=== PATIENT | female | born 1935 | race Caucasian/White ===

== ENCOUNTER 2019-05-20 03:16 | Inpatient (IN) ==
[2019-05-20] MEDS ORDERED: Naloxone 0.4 MG/ML INJ IVP PRN (05:48)
[2019-05-20] MEDS ORDERED: Ondansetron 4 MG/2 ML VIAL IVP PRN (05:48)
[2019-05-20 06:25] LABS: Basophils % 0.4 %; Hematocrit 34.5 % (35.3-44.9); Hemoglobin 11.5 g/dL (11.5-15.4); Immature Granulocytes % 0.3 % (0-4); Lymphocytes # 1.6 K/mcL (0.6-4.6); Lymphocytes % 15.8 %; Mean Corpuscular HGB Conc 33.3 g/dL (31.6-35.5); Mean Corpuscular Hemoglobin 29.9 pg (28.0-33.3); Mean Corpuscular Volume 89.6 fL (83.0-100.0); Mean Platelet Volume 9.4 fL (9.4-12.4); Monocytes # 0.7 K/mcL (0.0-1.3); Monocytes % 6.8 %; Neutrophils # 7.5 K/mcL (1.6-8.9); Platelet Count 206 K/mcL (140-400); Red Blood Count 3.85 M/mcL (3.82-4.97); Red Cell Distribution Width 13.8 % (11.5-14.5); Segmented Neutrophils % 76.7 %; White Blood Count 9.8 K/mcL (4.3-11.1)
[2019-05-20 06:32] LABS: INR 1.2; Prothrombin Time 13.6 Seconds (9.4-12.1)
[2019-05-20 06:42] LABS: Alanine Aminotransferase 12 Units/L (7-52); Albumin 3.5 g/dL (3.5-5.7); Albumin/Globulin Ratio 1.4 (1.1-2.2); Alkaline Phosphatase 37 Units/L (34-104); Aspartate Amino Transferase 23 Units/L (13-39); BUN/Creatinine Ratio 19 (6-26); Bilirubin,Total 0.6 mg/dL (0.3-1.0); Blood Urea Nitrogen 22 mg/dL (8-23); Calcium 8.9 mg/dL (8.6-10.3); Carbon Dioxide 27 mEq/L (23-29); Chloride 107 mEq/L (98-107); Globulin 2.5 g/dL (2.4-3.5); Glucose 125 mg/dL (70-105); Magnesium 1.9 mg/dL (1.6-2.6); Osmolality,Calculated 293 (280-300); Potassium 4.2 mEq/L (3.5-5.1); Sodium 139 mEq/L (136-145); eGFR For African Americans 55 (> 60); eGFR For Non-African Americans 45 (> 60)
[2019-05-20] MEDS ORDERED: Potassium Chloride 40 MEQ, Lidocaine 1% 2 ML in 0.9 % Sodium Chloride 500 ML IVPB ONE (06:44)
[2019-05-20 06:48] LABS: Troponin I < 0.03 ng/mL (< 0.04)
[2019-05-20] MEDS ORDERED: cefTRIAXone 1,000 MG in Water for inj. (sterile) 10 ML IVP SCH (09:00)
[2019-05-20] MEDS: polyethylene glycoL 3350 17 GM POWD.PACK PO SCH (09:44)
[2019-05-20] MEDS: Lactobacillus 1 EACH CAP.SPRINK PO SCH ×2 (09:44→20:51)
[2019-05-20 10:44] LABS: Bilirubin,Urine Negative (Negative); Blood,Urine Small (Negative); Clarity,Urine Cloudy (Clear); Color,Urine Yellow (Yellow); Glucose,Urine (UA) Normal (Normal); Ketones,Urine Negative (Negative); Leukocyte Esterase,Urine Moderate (Negative); Nitrite,Urine Negative (Negative); Protein,Urine 100 mg/dL (Neg-Trace); Urobilinogen,Urine Normal (Normal)
[2019-05-20 10:49] LABS: Bacteria,Urine None Seen per hpf (None-Few); Hyaline Casts,Urine Few per lpf (None-Few); RBC,Urine 50-100 per hpf (0-3); Squamous Epithelial Cell,Urine Many per lpf (None-Few); WBC,Urine 30-50 per hpf (0-3)
[2019-05-20] MEDS: *HR* Heparin 5,000 UNIT/ML VIAL SQ SCH ×2 (14:52→20:51)
[2019-05-20] MEDS: Acetaminophen 325 MG TABLET PO PRN (20:50)
[2019-05-20] MEDS: Divalproex Sodium 125 MG CAPSULE PO SCH (20:50)
[2019-05-21] MEDS: *HR* Heparin 5,000 UNIT/ML VIAL SQ SCH ×3 (05:37→21:54)
[2019-05-21 08:39] LABS: Adenovirus Not Detected (Not Detect); Coronavirus 229E Not Detected (Not Detect); Coronavirus HKU1 Not Detected (Not Detect); Coronavirus NL63 Not Detected (Not Detect); Coronavirus OC43 Not Detected (Not Detect); Human Metapneumovirus Not Detected (Not Detect); Human Rhinovirus/Enterovirus Not Detected (Not Detect); Influenza A Subtype 2009 H1 Not Detected (Not Detect)
[2019-05-21 08:40] LABS: Bordetella Pertussis Not Detected (Not Detect); Chlamydophila pneumoniae Not Detected (Not Detect); Influenza B Not Detected (Not Detect); Mycoplasma pneumoniae Not Detected (Not Detect); Parainfluenza Virus 1 Not Detected (Not Detect); Parainfluenza Virus 2 Not Detected (Not Detect); Parainfluenza Virus 3 Not Detected (Not Detect); Parainfluenza Virus 4 Not Detected (Not Detect); Respiratory Syncytial Virus Not Detected (Not Detect)
[2019-05-21] MEDS: Divalproex Sodium 125 MG CAPSULE PO SCH ×2 (10:08→21:53)
[2019-05-21] MEDS: Aspirin Enteric Coated 81 MG Tablet PO SCH (10:08)
[2019-05-21] MEDS: Lactobacillus 1 EACH CAP.SPRINK PO SCH ×2 (10:08→21:53)
[2019-05-21] MEDS: polyethylene glycoL 3350 17 GM POWD.PACK PO SCH (10:08)
[2019-05-21] MEDS ORDERED: Ringers Solution, Lactated 1,000 ML IVC ONE (11:52)
[2019-05-21 12:33] LABS: Basophils # 0.1 K/mcL (0.0-0.2); Basophils % 1.1 %; Eosinophils # 0.1 K/mcL (0.0-0.6); Eosinophils % 1.7 %; Hematocrit 33.8 % (35.3-44.9); Hemoglobin 11.3 g/dL (11.5-15.4); Immature Granulocytes % 0.2 % (0-4); Lymphocytes # 1.6 K/mcL (0.6-4.6); Lymphocytes % 24.9 %; Mean Corpuscular HGB Conc 33.4 g/dL (31.6-35.5); Mean Corpuscular Hemoglobin 30.2 pg (28.0-33.3); Mean Corpuscular Volume 90.4 fL (83.0-100.0); Mean Platelet Volume 9.7 fL (9.4-12.4); Monocytes # 0.4 K/mcL (0.0-1.3); Monocytes % 6.4 %; Neutrophils # 4.2 K/mcL (1.6-8.9); Platelet Count 169 K/mcL (140-400); Red Blood Count 3.74 M/mcL (3.82-4.97); Red Cell Distribution Width 13.6 % (11.5-14.5); Segmented Neutrophils % 65.7 %; White Blood Count 6.4 K/mcL (4.3-11.1)
[2019-05-21 12:44] LABS: Alanine Aminotransferase 13 Units/L (7-52); Albumin 3.2 g/dL (3.5-5.7); Albumin/Globulin Ratio 1.3 (1.1-2.2); Alkaline Phosphatase 32 Units/L (34-104); Aspartate Amino Transferase 26 Units/L (13-39); BUN/Creatinine Ratio 20 (6-26); Bilirubin,Total 0.9 mg/dL (0.3-1.0); Blood Urea Nitrogen 17 mg/dL (8-23); Calcium 8.6 mg/dL (8.6-10.3); Carbon Dioxide 27 mEq/L (23-29); Chloride 107 mEq/L (98-107); Globulin 2.5 g/dL (2.4-3.5); Glucose 100 mg/dL (70-105); Osmolality,Calculated 288 (280-300); Potassium 3.8 mEq/L (3.5-5.1); Sodium 138 mEq/L (136-145); Total Protein 5.7 g/dL (6.4-8.9); eGFR For African Americans > 60 (> 60); eGFR For Non-African Americans > 60 (> 60)
[2019-05-21] MEDS: Cefepime HCl 2,000 MG in Water for inj. (sterile) 20 ML IVP SCH (15:40)
[2019-05-21 17:37] LABS: Thyroid Stimulating Hormone 0.717 mcIU/mL (0.340-5.600)
[2019-05-22 04:33] LABS: BUN/Creatinine Ratio 24 (6-26); Blood Urea Nitrogen 19 mg/dL (8-23); Calcium 8.3 mg/dL (8.6-10.3); Carbon Dioxide 25 mEq/L (23-29); Chloride 110 mEq/L (98-107); Glucose 106 mg/dL (70-105); Osmolality,Calculated 295 (280-300); Potassium 3.7 mEq/L (3.5-5.1); Sodium 141 mEq/L (136-145); eGFR For African Americans > 60 (> 60); eGFR For Non-African Americans > 60 (> 60)
[2019-05-22] MEDS: *HR* Heparin 5,000 UNIT/ML VIAL SQ SCH ×3 (05:47→22:04)
[2019-05-22] MEDS: Cefepime HCl 2,000 MG in Water for inj. (sterile) 20 ML IVP SCH ×2 (05:47→15:00)
[2019-05-22] MEDS ORDERED: Isovue-370 500 ML BOTTLE IVP ONE ×2 (11:14)
[2019-05-22] MEDS: Lactobacillus 1 EACH CAP.SPRINK PO SCH ×2 (11:35→22:00)
[2019-05-22] MEDS: Divalproex Sodium 125 MG CAPSULE PO SCH ×2 (11:35→22:00)
[2019-05-22] MEDS: polyethylene glycoL 3350 17 GM POWD.PACK PO SCH (11:35)
[2019-05-22] MEDS: Aspirin Enteric Coated 81 MG Tablet PO SCH (11:35)
[2019-05-22] MEDS ORDERED: Isovue-370 500 ML BOTTLE PO ONE (11:54)
[2019-05-22] MEDS: Acetaminophen 325 MG TABLET PO PRN (13:01)
[2019-05-22] MEDS ORDERED: Aminoglycoside Consult 1 EACH MC ONE (13:11)
[2019-05-22 16:31] LABS: Lactate Dehydrogenase 134 Units/L (140-271)
[2019-05-23] MEDS: *HR* Heparin 5,000 UNIT/ML VIAL SQ SCH (06:11)
[2019-05-23] MEDS: polyethylene glycoL 3350 17 GM POWD.PACK PO SCH (09:33)
[2019-05-23] MEDS: Divalproex Sodium 125 MG CAPSULE PO SCH (09:34)
[2019-05-23] MEDS: Aspirin Enteric Coated 81 MG Tablet PO SCH (09:35)
[2019-05-23] MEDS: Lactobacillus 1 EACH CAP.SPRINK PO SCH (09:35)
[2019-05-23 11:15] VITALS: BP 162/72
[2019-05-25 13:02] LABS: Urine Collection Volume NOT PROVIDED mL
[2019-05-26 09:44] LABS: Urine Collection Volume NOT PROVIDED mL
== END 2019-05-23 13:12 | disposition home or self-care (01) | DRG 466 ==
LOC: 2NENU → SUATTDRO 05:11
PROVIDERS: ADMIT Pharmacist; ATTEND Pharmacist

== ENCOUNTER 2021-11-17 14:50 | Inpatient (IN) ==
[2021-11-17] MEDS ORDERED: *HR* HYDROcodone/Acet 5/325 mg TABLET PO PRN (17:21)
[2021-11-17] MEDS ORDERED: Acetaminophen 325 MG TABLET PO PRN (17:21)
[2021-11-17] MEDS ORDERED: Naloxone 0.4 MG/ML INJ IVP PRN (17:21)
[2021-11-17] MEDS ORDERED: Ondansetron 4 MG/2 ML VIAL IVP PRN (17:21)
[2021-11-17] MEDS ORDERED: *HR* OxyCODONE Immed Rel 5 MG TABLET PO PRN (17:21)
[2021-11-17] MEDS ORDERED: *HR* LORazepam 2 MG/ML VIAL IVP ONE (20:53)
[2021-11-18] MEDS: 0.9 % Sodium Chloride 1,000 ML IVC SCH ×2 (06:25→08:15)
[2021-11-18 08:05] LABS: Basophils # 0.1 K/mcL (0.0-0.2); Basophils % 0.9 %; Eosinophils # 0.4 K/mcL (0.0-0.6); Eosinophils % 5.9 %; Hematocrit 36.1 % (35.3-44.9); Hemoglobin 11.7 g/dL (11.5-15.4); Immature Granulocytes % 0.3 % (0-4); Lymphocytes % 30.9 %; Mean Corpuscular HGB Conc 32.4 g/dL (31.6-35.5); Mean Corpuscular Hemoglobin 30.5 pg (28.0-33.3); Mean Platelet Volume 9.2 fL (9.4-12.4); Monocytes # 0.5 K/mcL (0.0-1.3); Monocytes % 8.2 %; Neutrophils # 3.5 K/mcL (1.6-8.9); Platelet Count 163 K/mcL (140-400); Red Blood Count 3.84 M/mcL (3.82-4.97); Red Cell Distribution Width 13.8 % (11.5-14.5); Segmented Neutrophils % 53.8 %; White Blood Count 6.5 K/mcL (4.3-11.1)
[2021-11-18 08:11] LABS: INR 1.2; Prothrombin Time 13.6 Seconds (9.4-12.1)
[2021-11-18 08:26] LABS: Calcium 8.3 mg/dL (8.6-10.3); Magnesium 1.8 mg/dL (1.6-2.6); Potassium 3.7 mEq/L (3.5-5.1)
[2021-11-18] MEDS ORDERED: *HR* FentaNYL (PF) 100 MCG/2 ML VIAL ONE (09:05)
[2021-11-18] MEDS ORDERED: *HR* Propofol 200 MG/20 ML VIAL IVP ONE (09:05)
[2021-11-18] MEDS ORDERED: *HR* Rocuronium Bromide 50 MG/5 ML VIAL ONE ×2 (09:06→12:13)
[2021-11-18] MEDS ORDERED: Lidocaine -MPF 2% 5 ML VIAL ONE (09:06)
[2021-11-18] MEDS ORDERED: Ondansetron 4 MG/2 ML VIAL ONE (09:07)
[2021-11-18] MEDS ORDERED: Famotidine 20 MG/2 ML VIAL IVP ONE (09:21)
[2021-11-18] MEDS ORDERED: Acetaminophen IV 1,000 MG/100 ML BAG IVPB ONE (09:22)
[2021-11-18] MEDS ORDERED: Vancomycin 1,000 MG VIAL ONE ×2 (09:51→12:14)
[2021-11-18] MEDS ORDERED: Lidocaine -MPF 2% 2 ML VIAL ONE (09:57)
[2021-11-18] MEDS ORDERED: Ropivacaine/PF 0.5% 30 ML VIAL ONE (09:57)
[2021-11-18] MEDS ORDERED: TOTAL JOINT MIXTURE (100ML) INTRAART ONE (10:30)
[2021-11-18] MEDS ORDERED: Povidone-Iodine 45 ML, Sodium Chloride IRRigation 1,000 ML IR ONE (10:30)
[2021-11-18] MEDS ORDERED: Tranexamic Acid 1,000 MG/10 ML VIAL ONE ×2 (11:17→12:36)
[2021-11-18] MEDS ORDERED: EPHEDrine 50 MG/ML VIAL ONE (11:30)
[2021-11-18] MEDS ORDERED: Tobramycin Sulf (Sterile) 1.2 GM VIAL ONE (12:09)
[2021-11-18] MEDS ORDERED: Morphine Sulfate 2 MG/ML SYRINGE IVP PRN (12:46)
[2021-11-18] MEDS ORDERED: Sugammadex Sodium 200 MG/2 ML VIAL IV ONE (13:02)
[2021-11-18] MEDS ORDERED: cefTRIAXone 1,000 MG in 0.9 % Sodium Chloride 10 ML IVP SCH (15:00)
[2021-11-18] MEDS ORDERED: Sennosides 8.6 MG TABLET PO PRN (17:28)
[2021-11-18] MEDS ORDERED: Naloxone 0.4 MG/ML INJ IVP PRN ×2 (17:28)
[2021-11-18] MEDS ORDERED: MOM Conc 10 ML UD.LIQ PO PRN (17:28)
[2021-11-18] MEDS ORDERED: *HR* Promethazine 25 MG/ML VIAL IM PRN (17:28)
[2021-11-18] MEDS ORDERED: Ondansetron 4 MG/2 ML VIAL IVP PRN ×2 (17:28)
[2021-11-18] MEDS: Ketorolac 30 MG/ML VIAL IVP SCH ×2 (18:28→20:57)
[2021-11-18] MEDS: Ringers Solution, Lactated 1,000 ML IVC SCH (18:39)
[2021-11-18] MEDS: *HR* OxyCODONE Immed Rel 5 MG TABLET PO PRN (20:54)
[2021-11-18] MEDS: CeFAZolin 2 GM/120 ML BAG IVPB SCH (22:28)
[2021-11-19] MEDS: *HR* OxyCODONE Immed Rel 5 MG TABLET PO PRN ×4 (03:32→22:58)
[2021-11-19] MEDS: Ringers Solution, Lactated 1,000 ML IVC SCH (03:36)
[2021-11-19 04:19] LABS: Calcium 8.2 mg/dL (8.6-10.3); Potassium 3.8 mEq/L (3.5-5.1)
[2021-11-19 04:21] LABS: Basophils % 0.4 %; Hematocrit 29.3 % (35.3-44.9); Immature Granulocytes % 0.4 % (0-4); Lymphocytes # 0.6 K/mcL (0.6-4.6); Mean Corpuscular HGB Conc 33.1 g/dL (31.6-35.5); Mean Corpuscular Hemoglobin 31.2 pg (28.0-33.3); Mean Corpuscular Volume 94.2 fL (83.0-100.0); Mean Platelet Volume 9.6 fL (9.4-12.4); Monocytes # 0.5 K/mcL (0.0-1.3); Neutrophils # 6.7 K/mcL (1.6-8.9); Platelet Count 166 K/mcL (140-400); Red Blood Count 3.11 M/mcL (3.82-4.97); Red Cell Distribution Width 13.5 % (11.5-14.5); Segmented Neutrophils % 85.2 %; White Blood Count 7.8 K/mcL (4.3-11.1)
[2021-11-19 04:27] LABS: Hemoglobin 9.7 g/dL (11.5-15.4)
[2021-11-19] MEDS: CeFAZolin 2 GM/120 ML BAG IVPB SCH ×3 (06:35→19:58)
[2021-11-19] MEDS: Multivit/Ca/Min/Fe/FA 1 TAB TABLET PO SCH (07:56)
[2021-11-19] MEDS: Ketorolac 30 MG/ML VIAL IVP SCH ×4 (07:56→18:42)
[2021-11-19] MEDS: Ascorbic Acid 500 MG TABLET PO SCH ×2 (07:57→16:38)
[2021-11-19] MEDS: Aspirin Enteric Coated 81 MG Tablet PO SCH (16:37)
[2021-11-20] MEDS: Ketorolac 30 MG/ML VIAL IVP SCH ×5 (00:31→23:37)
[2021-11-20 02:03] LABS: Basophils % 0.6 %; Eosinophils # 0.3 K/mcL (0.0-0.6); Eosinophils % 4.4 %; Hematocrit 25.9 % (35.3-44.9); Hemoglobin 8.6 g/dL (11.5-15.4); Immature Granulocytes % 0.6 % (0-4); Lymphocytes % 28.8 %; Mean Corpuscular HGB Conc 33.2 g/dL (31.6-35.5); Mean Corpuscular Hemoglobin 30.8 pg (28.0-33.3); Mean Corpuscular Volume 92.8 fL (83.0-100.0); Mean Platelet Volume 9.4 fL (9.4-12.4); Monocytes # 0.6 K/mcL (0.0-1.3); Platelet Count 185 K/mcL (140-400); Red Blood Count 2.79 M/mcL (3.82-4.97); Red Cell Distribution Width 13.9 % (11.5-14.5); Segmented Neutrophils % 56.6 %
[2021-11-20 02:26] LABS: Calcium 7.7 mg/dL (8.6-10.3); Potassium 3.6 mEq/L (3.5-5.1)
[2021-11-20] MEDS: CeFAZolin 2 GM/120 ML BAG IVPB SCH ×3 (05:43→21:11)
[2021-11-20] MEDS ORDERED: ONDANSETRON HCL 4 MG PO PRN (08:30)
[2021-11-20] MEDS: *HR* OxyCODONE Immed Rel 5 MG TABLET PO PRN ×2 (08:45→17:35)
[2021-11-20] MEDS: Aspirin Enteric Coated 81 MG Tablet PO SCH (08:45)
[2021-11-20] MEDS: Multivit/Ca/Min/Fe/FA 1 TAB TABLET PO SCH (08:46)
[2021-11-20] MEDS: Ascorbic Acid 500 MG TABLET PO SCH ×2 (08:48→17:24)
[2021-11-20] MEDS ORDERED: MULTIVITAMIN PO SCH (09:00)
[2021-11-20] MEDS ORDERED: NON-FORMULARY MEDICATION 1 EACH EACH (Memantine Hcl 10 MG Tablet) PO SCH (09:00)
[2021-11-20] MEDS: hydroCHLOROthiazide 25 MG TABLET PO SCH (10:46)
[2021-11-20] MEDS: traZODone 50 MG TABLET PO SCH ×3 (10:47→21:04)
[2021-11-20] MEDS: Methenamine Hippurate [Hiprex] 1 GM Tablet PO SCH ×2 (10:47→21:04)
[2021-11-20] MEDS: Divalproex (12 HR) 250 MG TABLET PO SCH ×3 (10:47→21:04)
[2021-11-20] MEDS: Melatonin 3 MG TABLET PO SCH (21:03)
[2021-11-21] MEDS: Ketorolac 30 MG/ML VIAL IVP SCH ×3 (05:23→17:33)
[2021-11-21] MEDS: CeFAZolin 2 GM/120 ML BAG IVPB SCH ×2 (05:24→14:34)
[2021-11-21] MEDS: Aspirin Enteric Coated 81 MG Tablet PO SCH (07:53)
[2021-11-21] MEDS: Ascorbic Acid 500 MG TABLET PO SCH ×2 (07:53→17:33)
[2021-11-21] MEDS: Divalproex (12 HR) 250 MG TABLET PO SCH ×3 (07:53→21:33)
[2021-11-21] MEDS: hydroCHLOROthiazide 25 MG TABLET PO SCH (07:53)
[2021-11-21] MEDS: traZODone 50 MG TABLET PO SCH ×3 (07:54→21:33)
[2021-11-21] MEDS: Multivit/Ca/Min/Fe/FA 1 TAB TABLET PO SCH (07:54)
[2021-11-21] MEDS: Methenamine Hippurate [Hiprex] 1 GM Tablet PO SCH ×2 (07:54→21:34)
[2021-11-21 12:54] LABS: Basophils # 0.1 K/mcL (0.0-0.2); Basophils % 0.8 %; Eosinophils # 0.6 K/mcL (0.0-0.6); Eosinophils % 7.5 %; Hematocrit 29.4 % (35.3-44.9); Hemoglobin 9.5 g/dL (11.5-15.4); Immature Granulocytes % 0.6 % (0-4); Lymphocytes # 2.4 K/mcL (0.6-4.6); Lymphocytes % 30.6 %; Mean Corpuscular HGB Conc 32.3 g/dL (31.6-35.5); Mean Corpuscular Hemoglobin 30.9 pg (28.0-33.3); Mean Corpuscular Volume 95.8 fL (83.0-100.0); Monocytes # 0.6 K/mcL (0.0-1.3); Monocytes % 6.9 %; Neutrophils # 4.3 K/mcL (1.6-8.9); Platelet Count 228 K/mcL (140-400); Red Blood Count 3.07 M/mcL (3.82-4.97); Segmented Neutrophils % 53.6 %
[2021-11-21 13:14] LABS: Calcium 8.2 mg/dL (8.6-10.3); Potassium 3.4 mEq/L (3.5-5.1)
[2021-11-21] MEDS: Melatonin 3 MG TABLET PO SCH (21:33)
[2021-11-22] MEDS: Ketorolac 30 MG/ML VIAL IVP SCH ×3 (00:02→13:32)
[2021-11-22] MEDS: CeFAZolin 2 GM/120 ML BAG IVPB SCH ×2 (00:03→06:37)
[2021-11-22] MEDS: *HR* OxyCODONE Immed Rel 5 MG TABLET PO PRN (01:19)
[2021-11-22 05:09] LABS: Basophils # 0.1 K/mcL (0.0-0.2); Basophils % 0.6 %; Eosinophils # 0.6 K/mcL (0.0-0.6); Eosinophils % 7.1 %; Hematocrit 27.3 % (35.3-44.9); Hemoglobin 8.8 g/dL (11.5-15.4); Immature Granulocytes % 1.3 % (0-4); Lymphocytes # 2.6 K/mcL (0.6-4.6); Lymphocytes % 31.5 %; Mean Corpuscular HGB Conc 32.2 g/dL (31.6-35.5); Mean Corpuscular Hemoglobin 30.2 pg (28.0-33.3); Mean Corpuscular Volume 93.8 fL (83.0-100.0); Mean Platelet Volume 9.4 fL (9.4-12.4); Monocytes # 0.7 K/mcL (0.0-1.3); Monocytes % 8.6 %; Neutrophils # 4.2 K/mcL (1.6-8.9); Platelet Count 251 K/mcL (140-400); Red Blood Count 2.91 M/mcL (3.82-4.97); Red Cell Distribution Width 13.8 % (11.5-14.5); Segmented Neutrophils % 50.9 %; White Blood Count 8.3 K/mcL (4.3-11.1)
[2021-11-22 05:15] VITALS: BP 149/70; PULSE 77; TEMP 98; O2SAT 93
[2021-11-22 05:32] LABS: Calcium 7.9 mg/dL (8.6-10.3); Potassium 4.1 mEq/L (3.5-5.1)
[2021-11-22] MEDS: Aspirin Enteric Coated 81 MG Tablet PO SCH (08:45)
[2021-11-22] MEDS: Divalproex (12 HR) 250 MG TABLET PO SCH (08:45)
[2021-11-22] MEDS: hydroCHLOROthiazide 25 MG TABLET PO SCH (08:47)
[2021-11-22] MEDS: traZODone 50 MG TABLET PO SCH (08:47)
[2021-11-22] MEDS: Ascorbic Acid 500 MG TABLET PO SCH (08:47)
[2021-11-22] MEDS: Multivit/Ca/Min/Fe/FA 1 TAB TABLET PO SCH (08:48)
[2021-11-22] MEDS: Methenamine Hippurate [Hiprex] 1 GM Tablet PO SCH (08:49)
[2021-11-22 09:56] LABS: Adenovirus Not Detected (Not Detect); Bordetella Pertussis Not Detected (Not Detect); Chlamydophila pneumoniae Not Detected (Not Detect); Coronavirus 229E Not Detected (Not Detect); Coronavirus HKU1 Not Detected (Not Detect); Coronavirus NL63 Not Detected (Not Detect); Coronavirus OC43 Not Detected (Not Detect); Human Metapneumovirus Not Detected (Not Detect); Human Rhinovirus/Enterovirus Not Detected (Not Detect); Influenza A Subtype 2009 H1 Not Detected (Not Detect); Influenza B Not Detected (Not Detect); Mycoplasma pneumoniae Not Detected (Not Detect); Parainfluenza Virus 1 Not Detected (Not Detect); Parainfluenza Virus 2 Not Detected (Not Detect); Parainfluenza Virus 3 Not Detected (Not Detect); Parainfluenza Virus 4 Not Detected (Not Detect); Respiratory Syncytial Virus Not Detected (Not Detect); SARS-CoV-2 Not Detected (Not Detect)
== END 2021-11-22 14:08 | DRG 323 ==
LOC: 4WAOSI → SUATTDRO 16:49
PROVIDERS: ADMIT Pharmacist; ATTEND Hospitalist